=== PATIENT | male | born 1980 | race American Indian/Alaskan Native ===

== ENCOUNTER → 2019-08-09 | Emergency (ER) | payer SELFPAY ==
--- NOTE | 2019-08-09 07:51 | Emergency Department Report ---
Chief Complaint: High BP Stated Complaint: HIGH BLOOD PRESSURE Time Seen by Provider: 08/09/19 07:40 - HPI History of Present Illness: 39-year-old -Luxembourger male in no acute distress nontoxic in appearance presents to the emergency room stating he ran out of his blood pressure medicine 2 days ago. Patient denies any chest pain shortness of breathing. Patient reports he is he is on lisinopril 10 mg and Norvasc 10 mg. When asked why did you not follow-up with your primary care provider he says that the clinic was too far he did not know how to get there. I discussed the patient that he has a smart phone and he could have pulled it up. - Exam Vital Signs: Vital Signs 08/09/19 07:09 Temperature 98.2 F Pulse Rate 85 Respiratory 15 Rate Blood Pressure 173/95 O2 Sat by Pulse 98 Oximetry Physical Exam: Gen: alert oriented NAD nontoxic in appearance Patient is ambulatory without difficulties. Lungs clear to auscultation bilateral Cardiac regular rate and rhythm no murmurs appreciated MSE screening note: Focused history and physical exam performed. Due to findings the following was ordered: 39-year-old -Lux[place]bour[place] male in no acute distress nontoxic in appearance presents to the emergency room stating he ran out of his blood pressure medicine 2 days ago. Patient denies any chest pain shortness of breathing. Patient reports he is he is on lisinopril 10 mg and Norvasc 10 mg. When asked why did you not follow-up with your primary care provider he says that the clinic was too far he did not know how to get there. I discussed the patient that he has a smart phone and he could have pulled it up. Discussed with patient that he can follow-up with his primary care provider as the emergency room is not the place for medication refills as that is considered chronic disease management and the need to be followed up by his primary care provider. Patient blood pressure is stable today. And patient has no complaints of chest pain shortness of breath headache change in vision. ED Disposition for MSE Clinical Impression: Medication refill Disposition: MED SCREENING EXAM-LEFT Is pt being admited?: No Does the pt Need Aspirin: No Condition: Stable Additional Instructions: You will need to follow-up with your primary care provider for your medication refill. As emergency room takes care of emergencies and this is considered management of chronic disease. This is best managed by your primary care provider. Referrals: Your, primary care clinic. [Other] - 3-5 Days
== END ==
LOC: ED 07:04
DX: I10 Essential (primary) hypertension (principal); Z76.0 Encounter for issue of repeat prescription
CPT/HCPCS: 99282